=== PATIENT | male | born 1950 | race African-American/Black ===

== ENCOUNTER 2021-08-18 18:11 | Emergency (ER) | payer MEDICAID, OTHER ==
[~2021-08-18] VITALS: Ht 172.7 cm; Wt 86.2 kg
[2021-08-18 22:24] VITALS: BP 169/97
== END 2021-08-18 22:38 | disposition home or self-care (01) ==
LOC: ER 18:15
DX: S20.212A Contusion of left front wall of thorax, initial encounter (principal); E11.9 Type 2 diabetes mellitus without complications; I10 Essential (primary) hypertension; M54.50 Low back pain, unspecified; W18.39XA Other fall on same level, initial encounter; Y93.89 Activity, other specified; Y92.89 Other specified places as the place of occurrence of the external cause; Y99.8 Other external cause status
CPT/HCPCS: 71046; 72100